=== PATIENT | male | born 1935 | race Caucasian/White ===

== ENCOUNTER → 2020-10-05 13:48 | Outpatient (BNVA) | payer MEDICARE, MEDICAID, SELFPAY | PROVIDERS: Family Provider Nurse Practitioner Family; PCP Nurse Practitioner Family; Visit Provider Nurse Practitioner Family | DX: N39.0 Urinary tract infection, site not specified (principal) | CPT/HCPCS: 81003; 87086 ==

== ENCOUNTER → 2024-09-16 09:48 | Outpatient (BNVA) | payer MEDICARE, MEDICAID, SELFPAY | PROVIDERS: Family Provider Nurse Practitioner Family; PCP Nurse Practitioner Family; Visit Provider Nurse Practitioner Family | DX: R35.89 Other polyuria (principal); E55.9 Vitamin D deficiency, unspecified; Z79.899 Other long term (current) drug therapy; Z13.6 Encounter for screening for cardiovascular disorders; M16.11 Unilateral primary osteoarthritis, right hip; M25.859 Other specified joint disorders, unspecified hip | CPT/HCPCS: 73502; 80053; 80061; 81000; 81003; 82306; 83036; 84443; 85025; 87086 ==